=== PATIENT | female | born 1950 | race Caucasian/White ===

== ENCOUNTER 2016-12-05 14:56 | Emergency (ER) | payer MEDICARE ==
[~2016-12-05] VITALS: Ht 160 cm; Wt 102.6 kg
[~2016-12-05 14:56] MED LIST: CHOL400C11 PO; HYDR25TA6 PO; LORA10TA72 PO; POTA20PA8 PO
[2016-12-05 14:57] VITALS: BP 123/71
== END 2016-12-05 16:08 | disposition home or self-care (01) ==
LOC: ED 15:40
DX: H65.05 Acute serous otitis media, recurrent, left ear (principal); H60.502 Unspecified acute noninfective otitis externa, left ear
CPT/HCPCS: 99283

== ENCOUNTER 2018-02-02 18:56 | Emergency (ER) | payer MEDICARE ==
[~2018-02-02] VITALS: Ht 160 cm; Wt 99.2 kg
[~2018-02-02 18:56] MED LIST changes: +POTA20PA25 PO; -POTA20PA8 PO
[2018-02-02 19:03] VITALS: BP 137/81
[2018-02-02] MEDS ORDERED: CITA10TA4 PO (19:18)
[2018-02-02] MEDS ORDERED: MONT10TA6 PO (19:18)
[2018-02-02] MEDS ORDERED: CYAN1TAB29 PO (19:18)
[2018-02-02] MEDS ORDERED: CALC200T3 PO (19:19)
[2018-02-02] MEDS ORDERED: FOLI-17 PO (19:19)
[2018-02-02] MEDS ORDERED: ALBU18HF INH (19:20)
[2018-02-02] MEDS ORDERED: IRON15TA3 PO (19:20)
[2018-02-02] MEDS ORDERED: LORazepam 1MG TABLET PO ONE (19:30)
[2018-02-02] MEDS ORDERED: LORazepam 1MG TABLET ONE (19:45)
== END 2018-02-02 20:13 | disposition home or self-care (01) ==
LOC: ED 19:50
DX: F41.1 Generalized anxiety disorder (principal)
CPT/HCPCS: 99283